=== PATIENT | male | born 1955 | race Caucasian/White ===

== ENCOUNTER 2017-05-04 13:45 | Outpatient (CLI) ==
[2015-02-07 14:10] VITALS: BMI 41.1
--- NOTE | 2017-05-04 14:31 | CT ---
Exam: CT of the right hip without intravenous contrast. Comparison: None available. Reason for exam: Right hip pain. FINDINGS: No acute fracture or dislocation. The femoral head articulates with the bony acetabulum. There are moderate degenerative changes with subchondral cyst formation and sclerosis. No large j oint effusion. No unexplained calcific soft tissue densities or radiopaque retained foreign bodies. Impression: No acute fracture or dislocation in the right hip with moderate degenerative disease.
--- NOTE | 2017-05-04 14:33 | CT ---
EXAM: CT scan of the lumbar spine without contrast HISTORY: Back pain TECHNIQUE: Imaging of the lumbar spine was performed without contrast. Sagittal and coronal recons tructions and axial images were provided for interpretation. Comparison none. FINDINGS: There is anterior subluxation of the L4 on the L5 vertebral body measuring 5.5 mm. There is no pars defect. The remainder of the lumbar spine demonstrates normal alignment. There is no e vidence of acute compression fracture. The paraspinal soft tissues are normal. No acute fractures a re seen within the sacrum. Five lumbar-type vertebral bodies are seen. Segmental analysis: T12-L1: The central canal and neural foramina appear patent. L1-L2: The central canal and neural foramina appear patent. L2-L3: There is mild disc bulge and facet joint arthropathy resulting in mild narrowing of the cent ral canal and neural foramina. L3-L4: There is disc bulge and mild to moderate facet joint arthropathy resulting in mild central c anal stenosis. The thecal sac is measuring approximately 6.6 mm AP. There is mild stenosis of the neural foramina bilaterally. L4-L5: There is diffuse disc bulge and moderate to severe facet joint arthropathy at this level res ulting in moderate to severe central canal and lateral recess stenosis. The thecal sac is reduced t o approximately 6 mm AP. There is mild stenosis of the neural foramina bilaterally. L5-S1: The central canal and lateral recesses appear patent. There is facet arthropathy resulting i n mild narrowing of the neural foramina. IMPRESSION: No evidence of compression fracture. There is grade 1 degenerative spondylolisthesis seen at L4-L5 measuring 5.5 mm. There is disc bulge and facet joint arthropathy resulting in moderate to severe central canal and lateral recess stenosi s seen at L4-L5.. A milder degree of central canal stenosis is also seen and L3-L4. There is foraminal stenosis seen bilaterally at the L3-L4 and L4-L5 disc spaces.
== END 2017-05-04 13:46 | disposition home or self-care (01) ==
LOC: RAD 13:45
PROVIDERS: ATTEND Internal Medicine
DX: M54.9 Dorsalgia, unspecified (principal); M25.551 Pain in right hip

== ENCOUNTER → 2017-06-08 | Outpatient (RCR) ==
[2015-02-07 14:10] VITALS: BMI 41.1
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
--- NOTE | 2017-05-27 10:24 | RS.OPPTDN ---
Subjective Date of Note: 05/27/17 Visit #: 2 Date of Evaluation: 05/25/17 Payer Source: Workman's Comp Treatment Diagnosis: Back pain, right LE symptoms Current Subjective/complaints:: Patient reports first treatment of US helped reduce pain. States he is working on initial HEP. Following modalities patient reports decreased pain to 2-3/10. Pain Assessment - Pain Description Pain Location: right low back and LE Pain Description: Nagging Current Pain Intensity: 4/10 prior to and 2-3/10 following treatment - Treatment Modality: Ultrasound Parameters/Method Applied: [id number] to the bilateral lumbar paraspinals, with focus at the right SI joint. Patient Position: Left Sidelying Interventions - Exercise/Activities/Manual Therapy Exercises/Activities: [id number]. Patient assisted with stretching of bilateral hamstrings, SKTC, and piriformis. Isometric hip add with pillow with glut and abdominal sets. Isometric hip flexion with discomfort at time on the right. Reviewed all exercises and patient able to demonstrate independence. Reviewed dx , body mechanics, HEP, and safety with transfer/bed mobility. Patient given copies of new exercises. Total minutes of Exercise: 25mins Manual Therapy: NA HOME EXERCISE PROGRAM: HS stretch for the right LE, SKTC, pirifromis stretch, isometric hip add, isometric hip flexion - Charges Total Direct Minutes: 39mins Total Treatment Time: 39mins Procedures billed for this date of service:: US, EX2 Assessment: Patient responding well to treatment and appears motivated to progress with HEP. Patient Education: Education of diagnosis, Body/Joint mechanics, Home Exercise Program, Activity Modification Patient demonstrates compliance with HEP?: Yes Short Term Goals Goal #1: Patient independent in basic HEP. Goal to be met by: 06/08/17 Progress towards Goal:: Progressing Goal #2: Muscle tone along lumbar paraspinals decreased to normal. Goal to be met by: 06/08/17 Goal #3: Right LE symptoms localized to the low back. Goal to be met by: 06/08/17 Progress towards Goal:: Progressing [facility] Goals Goal #1: Pt knows HEP and to continue ex's to maintain functional level at D/C. Goal to be met by: 07/04/17 Goal #2: Score on Oswestry LBP scale improved to 10. Goal to be met by: 07/04/17 Goal #3: Pt to demo. functional lumbar AROM without increased pain. Goal to be met by: 07/04/17 Goal #4: Patient able to return to work without limitation. Goal to be met by: 07/04/17 Plan PLAN OF CARE EXPIRES ON:: 07/04/17 ORDER # VISITS AND/OR THROUGH DATE: 07/04/17 PLAN: Continue Plan of Care (Continue with modalities and progress exercise to reduce pain and increase functional activity level.)
--- NOTE | 2017-05-29 11:48 | RS.OPPTDN ---
Subjective Date of Note: 05/29/17 Visit #: 3 Date of Evaluation: 05/25/17 Payer Source: Workman's Comp Treatment Diagnosis: Back pain, right LE symptoms Current Subjective/complaints:: Patient reports doing better after last session. States he has increased right hip and back pain with isometric right hip flexion. Pain Assessment - Pain Description Pain Location: right low back and LE Pain Description: Nagging Current Pain Intensity: mild following modalities and exercise - Treatment Modality: Ultrasound Parameters/Method Applied: [id number] at 1.5w/cm2 to the right lowback and S-I joint region prior to EX. Patient Position: Left Sidelying Interventions - Exercise/Activities/Manual Therapy Exercises/Activities: [id number]. Patient assisted with stretching of bilateral hamstrings, SKTC, and piriformis. Isometric hip add with pillow with glut and abdominal sets. Reviewed bridging. MET with isometric hip extension in right, then isometric hip extension in right with isometric hip flexion in left. Attempted modified half bridge on right with isometric hip flexion in left. Patient given copies of new exercises. Total minutes of Exercise: 25mins Manual Therapy: NA HOME EXERCISE PROGRAM: HS stretch for the right LE, SKTC, pirifromis stretch, isometric hip add, isometric hip flexion. Isometric hip extension on right and alt MET positions. - Objective Findings Observations,measurements,etc.: Patient demos leg length discrepancy with the right LE approx 3/4 inch longer than left. This is resolved with MET that focus on isometric right hip extension. - Charges Total Direct Minutes: 39mins Total Treatment Time: 40mins Procedures billed for this date of service:: US, EX2 Assessment: Patient responding well to modalites, HEP and MET for pelvic alignment. Patient Education: Body/Joint mechanics, Home Exercise Program, Education of Plan of Care Patient demonstrates compliance with HEP?: Yes Short Term Goals Goal #1: Patient independent in basic HEP. Goal to be met by: 06/08/17 (80%) Progress towards Goal:: Progressing Goal #2: Muscle tone along lumbar paraspinals decreased to normal. Goal to be met by: 06/08/17 Progress towards Goal:: Progressing Goal #3: Right LE symptoms localized to the low back. Goal to be met by: 06/08/17 Progress towards Goal:: Progressing Custodial Goals Goal #1: Pt knows HEP and to continue ex's to maintain functional level at D/C. Goal to be met by: 07/04/17 Progress towards goal: Progressing Goal #2: Score on Oswestry LBP scale improved to 10. Goal to be met by: 07/04/17 Goal #3: Pt to demo. functional lumbar AROM without increased pain. Goal to be met by: 07/04/17 Progress towards goal: Progressing Goal #4: Patient able to return to work without limitation. Goal to be met by: 07/04/17 Plan PLAN OF CARE EXPIRES ON:: 07/04/17 ORDER # VISITS AND/OR THROUGH DATE: 07/04/17 PLAN: Continue Plan of Care (Continue modalities and exericse to reduce pain and increase functional mobility.)
--- NOTE | 2017-06-01 11:59 | RS.OPPTDN ---
Subjective Date of Note: 06/01/17 Visit #: 4 Date of Evaluation: 05/25/17 Payer Source: Workman's Comp Treatment Diagnosis: Back pain, right LE symptoms Current Subjective/complaints:: Patient reports a reduction in right hip pain and radicular symptoms. States he is able to walk longer distances without aggravating symptoms. Pain Assessment - Pain Description Pain Location: right low back and LE Pain Description: Nagging Current Pain Intensity: mild following modalities and exercise - Treatment Modality: Ultrasound Parameters/Method Applied: [id number] to the right lumbar paraspinals and S-I joint prior to EX. Patient Position: Left Sidelying Interventions - Exercise/Activities/Manual Therapy Exercises/Activities: [id number]. Patient assisted with stretching of bilateral hamstrings, SKTC, and piriformis. Isometric hip add with pillow with glut and abdominal sets. Bridging. MET with isometric hip extension in right, then isometric hip extension in right with isometric hip flexion in left. Modified half bridge on right. Ended with additional stretching of hamstrings and pirifromis bilaterally. Reviewed safety with lifting. Total minutes of Exercise: 25mins Manual Therapy: NA HOME EXERCISE PROGRAM: HS stretch for the right LE, SKTC, pirifromis stretch, isometric hip add, isometric hip flexion. Isometric hip extension on right and alt MET positions. Bridging. - Charges Total Direct Minutes: 39mins Total Treatment Time: 42mins Procedures billed for this date of service:: US, EX2 Assessment: Patient responding well to treatment and exercise. Reports reduction in pain with ambulation. Patient Education: Body/Joint mechanics, Home Exercise Program, Home Safety, Activity Modification Patient demonstrates compliance with HEP?: Yes Short Term Goals Goal #1: Patient independent in basic HEP. Goal to be met by: 06/08/17 (90%) Progress towards Goal:: Progressing Goal #2: Muscle tone along lumbar paraspinals decreased to normal. Goal to be met by: 06/08/17 Progress towards Goal:: Progressing Goal #3: Right LE symptoms localized to the low back. 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 Goal to be met by: 07/04/17 Progress towards goal: Progressing Goal #2: Score on Oswestry LBP scale improved to 10. Goal to be met by: 07/04/17 Goal #3: Pt to demo. functional lumbar AROM without increased pain. Goal to be met by: 07/04/17 Progress towards goal: Progressing Goal #4: Patient able to return to work without limitation. Goal to be met by: 07/04/17 Plan PLAN OF CARE EXPIRES ON:: 07/04/17 ORDER # VISITS AND/OR THROUGH DATE: 07/04/17 PLAN: Continue Plan of Care
--- NOTE | 2017-06-03 13:25 | RS.OPPTDN ---
Subjective Date of Note: 06/03/17 Visit #: 5 Date of Evaluation: 05/25/17 Payer Source: Workman's Comp Treatment Diagnosis: Back pain, right LE symptoms Current Subjective/complaints:: Patient reports right hip and LE pain is much better. Reports some continued muscle tension at the lower right lumbar and S-I regions. Reports symptoms have localized in right lateral upper thigh and are mild. Pain Assessment - Pain Description Pain Location: right low back and LE Pain Description: Nagging Current Pain Intensity: 2-3/10, less after treatment and exercise. - Treatment Modality: US with ES (Comb.) Parameters/Method Applied: [id number] with US at 1.5w/cm2 and Estim at 10-11p.v. to the right lower lumbar paraspinals and S-I joint region prior to EX. Patient Position: Left Sidelying Interventions - Exercise/Activities/Manual Therapy Exercises/Activities: [id number]. Patient assisted with stretching of bilateral hamstrings, SKTC, and piriformis. Isometric hip add with pillow with glut and abdominal sets. Bridging. MET with isometric hip extension in right, then isometric hip extension in right with isometric hip flexion in left. In hook- lying, isometric hip flexion on left. Ended with additional stretching of hamstrings and pirifromis bilaterally. Also stretching into IR of the right hip in 90/90 position. Reviewed safety with lifting. Total minutes of Exercise: 27mins Manual Therapy: NA HOME EXERCISE PROGRAM: HS stretch for the right LE, SKTC, pirifromis stretch, isometric hip add, isometric hip flexion. Isometric hip extension on right and alt MET positions. Bridging. - Charges Total Direct Minutes: 41mins Total Treatment Time: 41mins Procedures billed for this date of service:: [employer], EX2 Assessment: Changed to [employer] today in an attempt to reduce muscle tension. Patient responds well and is working on HEP. Patient Education: Body/Joint mechanics, Home Exercise Program Comments: Reviewed HEP, body mechanics, and safety with lifting. Patient demonstrates compliance with HEP?: Yes Short Term Goals Goal #1: Patient independent in basic HEP. Goal to be met by: 06/08/17 (90%) Progress towards Goal:: Progressing Goal #2: Muscle tone along lumbar paraspinals decreased to normal. Goal to be met by: 06/08/17 (40%) Progress towards Goal:: Progressing Goal #3: Right LE symptoms localized to the low back. Goal to be met by: 06/08/17 (50%) Progress towards Goal:: Progressing Group Home Goals Goal #1: Pt knows HEP and to continue ex's to maintain functional level at D/C. Goal to be met by: 07/04/17 Progress towards goal: Progressing Goal #2: Score on Oswestry LBP scale improved to 10. Goal to be met by: 07/04/17 Goal #3: Pt to demo. functional lumbar AROM without increased pain. Goal to be met by: 07/04/17 Progress towards goal: Progressing Goal #4: Patient able to return to work without limitation. Goal to be met by: 07/04/17 Plan PLAN OF CARE EXPIRES ON:: 07/04/17 ORDER # VISITS AND/OR THROUGH DATE: 07/04/17 PLAN: Continue Plan of Care (Continue modalites and exercise to reduce pain and return patient to PLOF.)
--- NOTE | 2017-06-05 12:14 | RS.OPPTDN ---
Subjective Date of Note: 06/05/17 Visit #: 6 Date of Evaluation: 05/25/17 Payer Source: Workman's Comp Treatment Diagnosis: Back pain, right LE symptoms Current Subjective/complaints:: Patient reports continued improvement in pain and in ability to perform light daily activities. States addition of USCOM seems to have helped reduce muscle tension. Reports mild radicular symptoms at lateral right hip and upper thigh. States he is working on HEP. Pain Assessment - Pain Description Pain Location: right low back and LE Pain Description: Nagging Current Pain Intensity: 2-3/10, with min to no dicomfort after treatment and exercise. - Treatment Modality: US with ES (Comb.) Parameters/Method Applied: [id number] with US at 1.5w/cm2 and Estim to 11 p.v. to the right lumbar paraspinals and right S-I and uppr glut region prior to EX. Patient Position: Left Sidelying Interventions - Exercise/Activities/Manual Therapy Exercises/Activities: [id number]. Patient assisted with stretching of bilateral hamstrings, SKTC, and piriformis. Isometric hip add with pillow with glut and abdominal sets. Bridging. MET with isometric hip extension in right, then isometric hip extension in right with isometric hip flexion in left. Assisted stretching of the right hip ER (into IR position). In hook-lying, isometric hip flexion on left. Ended with additional stretching of hamstrings and pirifromis bilaterally. Added self mob/MET at wall with isometric left hip flexion and right hip extension. Total minutes of Exercise: 24mins Manual Therapy: NA HOME EXERCISE PROGRAM: HS stretch for the right LE, SKTC, pirifromis stretch, isometric hip add, isometric hip flexion. Isometric hip extension on right and alt MET positions. Bridging. - Charges Total Direct Minutes: 38mins Total Treatment Time: 40mins Procedures billed for this date of service:: [employer], EX2 Assessment: Patient responding well to treatment. He appears to be working on HEP. Patient Education: Body/Joint mechanics, Home Exercise Program, Activity Modification Patient demonstrates compliance with HEP?: Yes Short Term Goals Goal #1: Patient independent in basic HEP. Goal to be met by: 06/08/17 (100%) Progress towards Goal:: Met Goal #2: Muscle tone along lumbar paraspinals decreased to normal. Goal to be met by: 06/08/17 (50%) Progress towards Goal:: Progressing Goal #3: Right LE symptoms localized to the low back. Goal to be met by: 06/08/17 (50%) Progress towards Goal:: Progressing Group Home Goals Goal #1: Pt knows HEP and to continue ex's to maintain functional level at D/C. Goal to be met by: 07/04/17 Progress towards goal: Progressing Goal #2: Score on Oswestry LBP scale improved to 10. Goal to be met by: 07/04/17 Goal #3: Pt to demo. functional lumbar AROM without increased pain. Goal to be met by: 07/04/17 Progress towards goal: Progressing Goal #4: Patient able to return to work without limitation. Goal to be met by: 07/04/17 Plan PLAN OF CARE EXPIRES ON:: 07/04/17 ORDER # VISITS AND/OR THROUGH DATE: 07/04/17 PLAN: Continue Plan of Care (Continue with modalities and exercise to reduce pain and increase functional activity level for patients return to full work duty.)
--- NOTE | 2017-06-08 09:53 | RS.OPPTDN ---
Subjective Date of Note: 06/08/17 Visit #: 26 Date of Evaluation: 05/25/17 Payer Source: Workman's Comp Treatment Diagnosis: Back pain, right LE symptoms Current Subjective/complaints:: Patient reports continued improvement in right LB, hip and LE pain. States he is working on HEP and trying to increase his activity level at home in preparation for return to work. Pain Assessment - Pain Description Pain Location: right low back and LE Pain Description: Nagging Current Pain Intensity: 2/10, with min to no dicomfort after treatment and exercise. - Treatment Modality: US with ES (Comb.) Parameters/Method Applied: [id number] with US at 1.5w/cm2 and Estim to 11-12p.v. to the to the right lowback, S-I and upper gluteal areas prior to EX. Patient Position: Left Sidelying Interventions - Exercise/Activities/Manual Therapy Exercises/Activities: [id number]. Patient assisted with stretching of bilateral hamstrings, SKTC, and piriformis. Isometric hip add with pillow with glut and abdominal sets. Bridging. MET with isometric hip extension in right, then isometric hip extension in right with isometric hip flexion in left. Assisted stretching of the right hip ER (into IR position). In hook-lying, isometric hip flexion on left. Ended mat ex with additional stretching of hamstrings and pirifromis bilaterally. Practiced MET at wall with isometric left hip flexion and right hip extension. Reviewed patient education of safe lifting and body mechanics with ADL's. Total minutes of Exercise: 24mins Manual Therapy: NA HOME EXERCISE PROGRAM: HS stretch for the right LE, SKTC, pirifromis stretch, isometric hip add, isometric hip flexion. Isometric hip extension on right and alt MET positions. Bridging. - Charges Total Direct Minutes: 38mins Total Treatment Time: 40mins Procedures billed for this date of service:: US, EX2 Assessment: Patient progressing well with increase in functional mobility and activity level at home. Will need to continue to be able to return to work. Patient Education: Body/Joint mechanics, Home Exercise Program, Home Safety, Activity Modification Patient demonstrates compliance with HEP?: Yes Short Term Goals Goal #1: Patient independent in basic HEP. Goal to be met by: 06/08/17 (100%) Progress towards Goal:: Met Goal #2: Muscle tone along lumbar paraspinals decreased to normal. Goal to be met by: 06/08/17 (50%) Progress towards Goal:: Progressing Goal #3: Right LE symptoms localized to the low back. 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 Goal to be met by: 07/04/17 Progress towards goal: Progressing Goal #2: Score on Oswestry LBP scale improved to 10. Goal to be met by: 07/04/17 Goal #3: Pt to demo. functional lumbar AROM without increased pain. Goal to be met by: 07/04/17 Progress towards goal: Progressing Goal #4: Patient able to return to work without limitation. Goal to be met by: 07/04/17 Plan PLAN OF CARE EXPIRES ON:: 07/04/17 ORDER # VISITS AND/OR THROUGH DATE: 07/04/17 PLAN: Continue Plan of Care
== END ==
PROVIDERS: ATTEND Internal Medicine
DX: M54.41 Lumbago with sciatica, right side (principal)

== ENCOUNTER 2017-06-23 10:00 | Outpatient (RCR) ==
[2015-02-07 14:10] VITALS: BMI 41.1
--- NOTE | 2017-06-10 16:01 | RS.OPPTDN ---
Subjective Date of Note: 06/10/17 Visit #: 8 Date of Evaluation: 05/25/17 Payer Source: Workman's Comp Treatment Diagnosis: Back pain, right LE symptoms Current Subjective/complaints:: Patient reports continued improvement. States he was able to do moderate activity yesterday without increased pain. Pain Assessment - Pain Description Pain Location: right low back and LE Pain Description: Nagging Current Pain Intensity: mild - Treatment Modality: US with ES (Comb.) Parameters/Method Applied: [id number] US at 1.5w/cm2 and Estim at 11 p.v. to the right lowback, S-I joint, and upoper gluteal area prior to EX. Patient Position: Left Sidelying Interventions - Exercise/Activities/Manual Therapy Exercises/Activities: [id number]. Patient assisted with stretching of bilateral hamstrings, SKTC, and piriformis. Isometric hip add with pillow with glut and abdominal sets. Bridging. MET with isometric hip extension in right, then isometric hip extension in right with isometric hip flexion in left. Assisted stretching of the right hip ER (into IR position). In hook-lying, isometric hip flexion on left. Ended mat ex with additional stretching of hamstrings and pirifromis bilaterally. Total minutes of Exercise: 25mins Manual Therapy: NA HOME EXERCISE PROGRAM: HS stretch for the right LE, SKTC, pirifromis stretch, isometric hip add, isometric hip flexion. Isometric hip extension on right and alt MET positions. Bridging. - Charges Total Direct Minutes: 25mins Total Treatment Time: 39mins Procedures billed for this date of service:: USCOM, EX2 Assessment: Patient progressing well and trying to resume daily activities at home in preparation for return to work. 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 Patient Education: Body/Joint mechanics, Home Exercise Program, Home Safety, Activity Modification Patient demonstrates compliance with HEP?: Yes Short Term Goals Goal #1: Patient independent in basic HEP. Goal to be met by: 06/08/17 (100%) Progress towards Goal:: Met Goal #2: Muscle tone along lumbar paraspinals decreased to normal. Goal to be met by: 06/08/17 (50%) Progress towards Goal:: Progressing Goal #3: Right LE symptoms localized to the low back. 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 Goal to be met by: 07/04/17 Progress towards goal: Progressing Goal #2: Score on Oswestry LBP scale improved to 10. Goal to be met by: 07/04/17 Goal #3: Pt to demo. functional lumbar AROM without increased pain. Goal to be met by: 07/04/17 Progress towards goal: Progressing Goal #4: Patient able to return to work without limitation. Goal to be met by: 07/04/17 Plan PLAN OF CARE EXPIRES ON:: 07/04/17 ORDER # VISITS AND/OR THROUGH DATE: 07/04/17 PLAN: Continue Plan of Care
--- NOTE | 2017-06-12 12:18 | RS.OPPTDN ---
Subjective Date of Note: 06/12/17 Visit #: 9 Date of Evaluation: 05/25/17 Payer Source: Workman's Comp Treatment Diagnosis: Back pain, right LE symptoms Current Subjective/complaints:: Patient reports doing much better. States he will see physician on Thursday for a follow-up and feels he may be ready to try and return to work. States HEP has helped and he will continue following discharge. Pain Assessment - Pain Description Pain Location: right low back and LE Pain Description: Nagging Current Pain Intensity: mild - Treatment Modality: US with ES (Comb.) Parameters/Method Applied: [id number] to the bilateral lumbar parspinals and right S-I joint and upper glut prior to EX. Patient Position: Left Sidelying Interventions - Exercise/Activities/Manual Therapy Exercises/Activities: [id number]. Patient assisted with stretching of bilateral hamstrings, SKTC, and piriformis. Isometric hip add with pillow with glut and abdominal sets. Bridging. MET with isometric hip extension in right, then isometric hip extension in right with isometric hip flexion in left. Assisted stretching of the right hip ER (into IR position). In hook-lying, isometric hip flexion on left. Green theraband for bilateral hip abduction with green theraband. Ended mat ex with additional stretching of hamstrings and pirifromis bilaterally. Reveiwed patient education of dx, mechanics, and HEP. Total minutes of Exercise: 27mins Manual Therapy: NA HOME EXERCISE PROGRAM: HS stretch for the right LE, SKTC, pirifromis stretch, isometric hip add, isometric hip flexion. Isometric hip extension on right and alt MET positions. Bridging. - Charges Total Direct Minutes: 41mins Total Treatment Time: 41mins Procedures billed for this date of service:: USCOM, EX Assessment: Patient has progressed well with treatment and exercise. He reports a decrease in pain and increase in functional activities at home. Patient Education: Home Exercise Program, Activity Modification Patient demonstrates compliance with HEP?: Yes Short Term Goals Goal #1: Patient independent in basic HEP. Goal to be met by: 06/08/17 (100%) Progress towards Goal:: Met Goal #2: Muscle tone along lumbar paraspinals decreased to normal. Goal to be met by: 06/08/17 (80%) Progress towards Goal:: Progressing Goal #3: Right LE symptoms localized to the low back. 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 Goal to be met by: 07/04/17 Progress towards goal: Met Goal #2: Score on Oswestry LBP scale improved to 10. Goal to be met by: 07/04/17 Progress towards goal: Progressing Goal #3: Pt to demo. functional lumbar AROM without increased pain. Goal to be met by: 07/04/17 Progress towards goal: Met Goal #4: Patient able to return to work without limitation. Goal to be met by: 07/04/17 Plan PLAN OF CARE EXPIRES ON:: 07/04/17 ORDER # VISITS AND/OR THROUGH DATE: 07/04/17 PLAN: Hold (Hold until patient has follow-up with physician. He may be release to return to work.)
--- NOTE | 2017-06-16 11:42 | RS.OPPTDN ---
Subjective Date of Note: 06/16/17 Visit #: 10 Date of Evaluation: 05/25/17 Payer Source: Workman's Comp Treatment Diagnosis: Back pain, right LE symptoms Current Subjective/complaints:: Patient reports continued improvement. States he has intermittent pain at the lateral right hip, especially with hip flexion to go up steps. [facility] physician has advised him to continue therapy one more week before deciding on release back to work. Pain Assessment - Pain Description Pain Location: right low back and LE Pain Description: Nagging Current Pain Intensity: mild Other Comments regarding Pain:: Occasional sharp ache in the right lateral hip with activity. - Treatment Modality: US with ES (Comb.) Parameters/Method Applied: [id number] with US at 1.5w/cm2 and Estim to 12p.v. along lumbar paraspinals with focus on upper and lateral gluts prior to EX. Patient Position: Left Sidelying Interventions - Exercise/Activities/Manual Therapy Exercises/Activities: [id number]. Patient assisted with stretching of bilateral hamstrings, SKTC, and piriformis. Isometric hip add with pillow with glut and abdominal sets. MET with isometric hip extension in right. Half bridge on right for MET. Total minutes of Exercise: 20mins Manual Therapy: NA HOME EXERCISE PROGRAM: HS stretch for the right LE, SKTC, pirifromis stretch, isometric hip add, isometric hip flexion. Isometric hip extension on right and alt MET positions. Bridging. Green theraband for resistive bilateral hip abduction in hook-lying. - Objective Findings Observations,measurements,etc.: Patient has increased pain in the right LB and hip with isometric hip flexion in right. - Charges Total Direct Minutes: 34mins Total Treatment Time: 34mins Procedures billed for this date of service:: USCOM, EX Assessment: Patient continues to progress. He is consistent with HEP. Pain with right hip flexion indicates need to continue modalities and exercise. Patient Education: Home Exercise Program Patient demonstrates compliance with HEP?: Yes Short Term Goals Goal #1: Patient independent in basic HEP. Goal to be met by: 06/08/17 (100%) Progress towards Goal:: Met Goal #2: Muscle tone along lumbar paraspinals decreased to normal. Goal to be met by: 06/08/17 (80%) Progress towards Goal:: Progressing Goal #3: Right LE symptoms localized to the low back. 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 Goal to be met by: 07/04/17 Progress towards goal: Met Goal #2: Score on Oswestry LBP scale improved to 10. Goal to be met by: 07/04/17 Progress towards goal: Progressing Goal #3: Pt to demo. functional lumbar AROM without increased pain. Goal to be met by: 07/04/17 (75%) Progress towards goal: Met Goal #4: Patient able to return to work without limitation. Goal to be met by: 07/04/17 Plan PLAN OF CARE EXPIRES ON:: 07/04/17 ORDER # VISITS AND/OR THROUGH DATE: 07/04/17 PLAN: Continue Plan of Care (Continue modalites and progress exercise to prepare for return to work.)
--- NOTE | 2017-06-19 10:00 | RS.OPPTDN ---
Subjective Date of Note: 06/19/17 Visit #: 11 Date of Evaluation: 05/25/17 Payer Source: Workman's Comp Treatment Diagnosis: Back pain, right LE symptoms Current Subjective/complaints:: Patient reports treatment and continued exercise has decreased right lowback and hip pain. States discomfort into the right lateral hip and upper thigh has nearly resolved. States that sitting/ driving does aggravate symptoms slightly, but feels he should be able to return to work next week as planned. States he is consistently working on HEP and will progress theraband resistance. Pain Assessment - Pain Description Pain Location: right low back and LE Pain Description: Nagging Current Pain Intensity: mild - Treatment Modality: US with ES (Comb.) Parameters/Method Applied: [id number] with US at 1.5w/cm2 and Estim at 12-14p.v. to the right lower lumbar paraspinals, S-I joint and medial to lateral gluteal area prior to EX. Patient Position: Left Sidelying Interventions - Exercise/Activities/Manual Therapy Exercises/Activities: [id number]. Patient assisted with stretching of bilateral hamstrings, SKTC, and piriformis. Isometric hip add with pillow with glut and abdominal sets. MET with isometric hip extension in right. Isometric hip abduction in hook-lying. Progressed to blue theraband for bilateral hip abduction in hook-lying with HEP. Patient also given black theraband for progression when tolerated. Total minutes of Exercise: 20mins Manual Therapy: NA HOME EXERCISE PROGRAM: HS stretch for the right LE, SKTC, pirifromis stretch, isometric hip add, isometric hip flexion. Isometric hip extension on right and alt MET positions. Bridging. Green theraband for resistive bilateral hip abduction in hook-lying. - Charges Total Direct Minutes: 34mins Total Treatment Time: 34mins Procedures billed for this date of service:: USCOM, EX Assessment: Patient has progressed well with treatment and is consistent with HEP. He feels he will be able to return to work and perform all duties without difficulty. Patient Education: Home Exercise Program Patient demonstrates compliance with HEP?: Yes Short Term Goals Goal #1: Patient independent in basic HEP. Goal to be met by: 06/08/17 (100%) Progress towards Goal:: Met Goal #2: Muscle tone along lumbar paraspinals decreased to normal. Goal to be met by: 06/08/17 (100%) Progress towards Goal:: Met Goal #3: Right LE symptoms localized to the low back. 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 Goal to be met by: 07/04/17 Progress towards goal: Met Goal #2: Score on Oswestry LBP scale improved to 10. Goal to be met by: 07/04/17 Progress towards goal: Progressing Goal #3: Pt to demo. functional lumbar AROM without increased pain. Goal to be met by: 07/04/17 (100%) Progress towards goal: Met Goal #4: Patient able to return to work without limitation. Goal to be met by: 07/04/17 Progress towards goal: Progressing (Plans to be released for work next week following appointment with physician.) Plan PLAN OF CARE EXPIRES ON:: 07/04/17 ORDER # VISITS AND/OR THROUGH DATE: 07/04/17 PLAN: Continue Plan of Care (Continue next week with treatment to reduce pain and to finalized HEP in preparation for return to work.)
--- NOTE | 2017-06-23 13:54 | RS.OPPTDN ---
Subjective Date of Note: 06/23/17 Visit #: 12 Date of Evaluation: 05/25/17 Payer Source: Workman's Comp Treatment Diagnosis: Back pain, right LE symptoms Current Subjective/complaints:: Patient reports doing much better this week. States he only has mild discomfort with some movements. 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 He states he will see physician tomorrow and feels he will be able to be released to go back to work. Pain Assessment - Pain Description Pain Location: right low back and LE Pain Description: Nagging Current Pain Intensity: mild - Treatment Modality: US with ES (Comb.) Parameters/Method Applied: [id number] with US at 1.5w/cm2 and Estim to 14p.v. to the right lowback, S-I and upper to lateral gluteal region prior to EX. Patient Position: Left Sidelying Interventions - Exercise/Activities/Manual Therapy Exercises/Activities: [id number]. Patient assisted with stretching of bilateral hamstrings, SKTC, and piriformis. Isometric hip add with pillow with glut and abdominal sets. MET with isometric hip extension in right. Isometric hip flexion in left. Isometric hip IR in 90/90 position. Patient progres to blue theraband for bilateral hip abduction in hook-lying at home. Reviewed all HEP including self mobilization/MET at wall. Completed patient education of safety with lifting and general daily activities. Total minutes of Exercise: 22mins Manual Therapy: NA HOME EXERCISE PROGRAM: HS stretch for the right LE, SKTC, pirifromis stretch, isometric hip add, isometric hip flexion. Isometric hip extension on right and alt MET positions. Bridging. Green theraband for resistive bilateral hip abduction in hook-lying. - Charges Total Direct Minutes: 36mins Total Treatment Time: 36mins Procedures billed for this date of service:: USCOM, EX Assessment: Patient has progressed well and benefitted from treatment. He as been consistent with attendance and with progression of HEP. He feels he is ready to return to work and will continue HEP. Patient has met 7 or 8 treatment goals. Patient Education: Body/Joint mechanics, Home Exercise Program, Activity Modification Patient demonstrates compliance with HEP?: Yes Short Term Goals Goal #1: Patient independent in basic HEP. Goal to be met by: 06/08/17 (100%) Progress towards Goal:: Met Goal #2: Muscle tone along lumbar paraspinals decreased to normal. Goal to be met by: 06/08/17 (100%) Progress towards Goal:: Met Goal #3: Right LE symptoms localized to the low back. Goal to be met by: 06/08/17 (80%) Progress towards Goal:: Met Appeals Rn Goals Goal #1: Pt knows HEP and to continue ex's to maintain functional level at D/C. Goal to be met by: 07/04/17 Progress towards goal: Met Goal #2: Score on Oswestry LBP scale improved to 10. Goal to be met by: 07/04/17 Progress towards goal: Met Goal #3: Pt to demo. functional lumbar AROM without increased pain. Goal to be met by: 07/04/17 (100%) Progress towards goal: Met Goal #4: Patient able to return to work without limitation. Goal to be met by: 07/04/17 Progress towards goal: Progressing (Plans to be released for work next week following appointment with physician.) Plan PLAN OF CARE EXPIRES ON:: 07/04/17 ORDER # VISITS AND/OR THROUGH DATE: 07/04/17 PLAN: Plan for Discharge (Plan for discharge with HEP, as patient expects to be released to return to work.)
== END 2017-07-09 ==
PROVIDERS: ATTEND Internal Medicine
DX: M54.41 Lumbago with sciatica, right side (principal)

== ENCOUNTER 2019-06-28 06:55 | Day surgery (SDC) ==
[2015-02-07 14:10] VITALS: BMI 41.1
[2019-06-28] MEDS ORDERED: LIDOCAINE 1% 20 ML MDV ID STA (07:30)
[2019-06-28] MEDS ORDERED: DIPRIVAN 20 ML VIAL IVP ONE (08:55)
[2019-06-28] MEDS ORDERED: VERSED ONE (08:55)
[2019-06-28 10:05] VITALS: BP 128/86; TEMP 96.9
--- NOTE | 2019-06-29 10:43 | OP ---
INDICATIONS FOR PROCEDURE: 63-year-old gentleman presents for screening colonoscopy exam. MEDICATIONS: SEE ANESTHESIA NOTES. PROCEDURE: COLONOSCOPY WITH SNARE POLYPECTOMY. REPORT: The risks, benefits, alternatives and limitations were discussed in detail with the patient. Informed consent was obtained. After adequate sedation was achieved, a digital rectal exam revealed good tone, no masses. The colonoscope was introduced into the rectum and advanced under direct visual guidance to the cecum. The cecum was identified by the appendiceal orifice and IC valve. I then slowly withdrew the scope in a circumferential manner examining the mucosa quite carefully. I looked on the proximal and distal side of folds and flexures as best as possible and I was able to retroflex the scope in the right colon and left colon to increase visualization. In the proximal transverse colon there is a 7 mm semi sessile polyp. I removed this by snare technique and in the distal transverse there is a 6 mm sessile polyp that I removed by snare technique. Both of these polyps were retrieved. In the descending colon there was a 4 to 5 mm sessile polyp, I destroyed this using a snare. No other abnormalities were noted other than small internal hemorrhoids on retroflex view of the anal canal. The prep was good. The withdrawal time was 12 minutes and 9 seconds. The patient tolerated the procedure well with stable vital signs and pulse oximetry throughout. IMPRESSION: 1. THREE (3) POLYPS REMOVED OR DESTROYED ABOVE. 2. SMALL INTERNAL HEMORRHOIDS. RECOMMENDATIONS: 1. High fiber diet. 2. Office visit as needed. 3. Await pathology results. If there are adenomatous changes, I recommend a colonoscopy examination again in three years otherwise an examination again in 5 years, sooner if there are any signs or symptoms to indicate otherwise. CC: DR. FLORIAN ANGELO
== END 2019-06-28 10:10 | disposition home or self-care (01) ==
LOC: SURG 06:55
PROVIDERS: ATTEND Internal Medicine Gastroenterology
DX: Z86.010 Personal history of colon polyps (principal); K64.8 Other hemorrhoids; D12.3 Benign neoplasm of transverse colon